=== PATIENT | female | born 1965 | race Caucasian/White ===

== ENCOUNTER 2018-03-19 15:59 | Emergency (ER) | payer OTHER ==
--- NOTE | 2018-03-19 16:19 | ED Physician Documentation ---
Upper Respiratory Symptoms - HISTORIAN Historian: patient - HPI Stated Complaint: cough Chief Complaint: Cough/ Upper Respiratory Additional Information: Patient presents to ED with a 5 day history of dry cough. She states she had an isolated fever 2 days ago of 102.0. Patient denies nasal congestion, chest pain, sinus pain. Onset: days ago (5) Duration: intermittent episodes Context: denies: recent foreign travel Severity: moderate Associated Symptoms: fever, productive cough. denies: runny nose, sinus pain, chest pain, hurts to breathe - ROS CONST/EYES: denies: weakness CVS/RESP: denies: chest pain, shortness of breath LYMPH: denies: leg swelling GI/: denies: vomiting, nausea NEURO/PSYCH: denies: dizziness MS/SKIN: denies: joint pain, muscle aches - PAST HX Lung Disease: COPD PE Risk Factors: none Surgeries/Procedures: none Allergies/Adverse Reactions: Allergies Allergy/AdvReac Type Severity Reaction Status Date / Time No Known Allergies Allergy Verified 03/19/18 16:27 Home Medications: Ambulatory Orders Medication Instructions Recorded Levofloxacin [Levaquin] 750 mg PO DAILY #10 tablet 03/19/18 - SOCIAL HX Smoking History: cigarettes Alcohol Use: none Drug Use: none - FAMILY HX Family History: none - VITAL SIGNS Vital Signs: Vital Signs Temp Pulse Resp BP Pulse Ox 99.2 F 85 32 H 127/95 95 03/19/18 16:08 03/19/18 16:08 03/19/18 16:08 03/19/18 16:08 03/19/18 16:08 - REVIEWED ASSESSMENTS Nursing Assessment Reviewed: Yes Vitals Reviewed: Yes ED Results Lab/Radiology - Lab Results Lab Results: PA and lateral chest History: Cough for 5 days. Smoker PA and lateral chest dated March 19, 2018 demonstrates multiple old bilateral rib fractures. Cardiomediastinal silhouette is normal. The lungs are hyperinflated consistent with COPD. Patchy right middle lobe infiltrate is present consistent with pneumonia. There is no pleural effusion. Impression: Patchy right middle lobe infiltrate consistent with pneumonia. Follow-up to resolution would be recommended in this high risk patient. COPD. Multiple old bilateral rib fractures. Electronically signed on Mar 19, 2018 5:02:39 PM SQUEEZER OPERATOR by: Mela Gan - Orders Orders: ED Orders Category Date Time Status CHEST 2VIEW [RAD] Stat Exams 03/19/18 Taken Lidocaine 1% 5ml(IM or SUTURE) [Xylocaine] Med 03/19/18 16:47 Discontinued 5 mg IJ NOW ONE cefTRIAXone SODIUM [Rocephin] Med 03/19/18 16:47 Discontinued 1,000 mg IM NOW ONE methylPREDNISolone SOD SUCC [Solu-MEDROL] Med 03/19/18 16:47 Discontinued 125 mg IM NOW ONE Upper Respiratory Symptoms - EXAM General Appearance: no acute distress, alert EENT: nml ENT inspection Neck: supple. No: lymphadenopathy Respiratory: no resp. distress, wheezes (right expiratory ) CVS: reg rate & rhythm, heart sounds normal Skin: warm,dry. No: rash Extremities: non-tender Neuro/Psych: oriented x3 Discharge Clincal Impression: Pneumonia Qualifiers: Pneumonia type: due to other aerobic Gram-negative bacteria Laterality: right Lung location: unspecified part of lung Qualified Code(s): J15.6 - Pneumonia due to other Gram-negative bacteria Prescriptions: Levofloxacin [Levaquin] 750 mg PO DAILY #10 tablet Additional Instructions: 1. Start Levaquin on 03/20/18 2. Mucinex twice daily 3. Tylenol and/or Ibuprofen as needed for pain/fever. 4. Follow up with PCP katie 1 week for repeat chest xray 5. Return to ER for new or worsening symptoms Condition: Stable Disposition: 01 HOME, SELF-CARE Decision to Admit: NO Date of Decison to Admit: 03/19/18 Decision Time: 17:22
[2018-03-19 16:25] VITALS: BP 127/95
[2018-03-19] MEDS ORDERED: LIDOCAINE HCL 1% PF 50MG/5ML AMP (IM/SUTURE/PAIN CLINIC) IJ ONE (16:47)
[2018-03-19] MEDS ORDERED: methylPREDNISolone SOD SUCC 125 MG/2 ML VIAL IM ONE (16:47)
--- NOTE | 2018-03-19 18:53 | Diagnostic Imaging Report ---
JACKIE COELHO [facility] [id number] [facility] [address] [place] [address]. [id number] Report Submission Date: Mar 19, 2018 5:02:39 PM EDUCATION DIRECTOR Patient Study Name: SOPHIE LESLIE Date: Mar 19, 2018 4:15:55 PM EDUCATION DIRECTOR Modality Type: DX Gender: F Description: CHEST : 61 Institution: [facility] Physician: JACKIE COELHO PA and lateral chest History: Cough for 5 days. Smoker PA and lateral chest dated March 19, 2018 demonstrates multiple old bilateral rib fractures. Cardiomediastinal silhouette is normal. The lungs are hyperinflated consistent with COPD. Patchy right middle lobe infiltrate is present consistent with pneumonia. There is no pleural effusion. Impression: Patchy right middle lobe infiltrate consistent with pneumonia. Follow-up to resolution would be recommended in this high risk patient. COPD. Multiple old bilateral rib fractures. Electronically signed on Mar 19, 2018 5:02:39 PM EDUCATION DIRECTOR by: Mela AWAN
== END 2018-03-19 17:45 | disposition home or self-care (01) ==
LOC: ED 15:59
DX: J15.6 Pneumonia due to other Gram-negative bacteria (principal)
CPT/HCPCS: 71046; 96372; 99283; 99284; J0696; J2930

== ENCOUNTER 2018-04-10 08:43 | Emergency (ER) | payer OTHER ==
[2018-04-10 09:06] VITALS: BP 114/83
--- NOTE | 2018-04-10 09:14 | ED Physician Documentation ---
General Adult - HISTORIAN Historian: patient, other (old records) - HPI Stated Complaint: Cough Chief Complaint: General Adult Additional Information: Diagnosed with pneumonia here on 03/19. Took 10 days of 750 mg Levaquin. Still co ughing, so comes to ER to see if she still has pneumonia. No fever or productive cough. Continues to smoke. - ROS CONST: denies: fever - PAST HX Past History: other (osteoporosis) Surgeries/Procedures: cholecystectomy Allergies/Adverse Reactions: Allergies Allergy/AdvReac Type Severity Reaction Status Date / Time No Known Allergies Allergy Verified 04/10/18 09:16 Home Medications: Ambulatory Orders Medication Instructions Recorded Celecoxib [Celebrex] 1T 04/10/18 Gabapentin 04/10/18 - SOCIAL HX Smoking History: cigarettes (15 years) - FAMILY HX Family History: No (no signif) - VITAL SIGNS Vital Signs: Vital Signs Temp Pulse Resp BP Pulse Ox 97.7 F 73 16 114/83 96 04/10/18 08:45 04/10/18 08:45 04/10/18 08:45 04/10/18 08:45 04/10/18 08:45 - REVIEWED ASSESSMENTS Nursing Assessment Reviewed: Yes Vitals Reviewed: Yes Progress - Progress Progress: Report Submission Date: Apr 10, 2018 9:56:24 AM ADVERTISING OPERATIONS MANAGER Patient Study Name: SOPHIE LESLIE Date: Apr 10, 2018 9:28:39 AM ADVERTISING OPERATIONS MANAGER MRN: [id number] Modality Type: DX Gender: F Description: CHEST 2 VIEW : [birth year] Institution: [facility] Physician: DOUG NATION - ER Chest two views History: Cough and recent pneumonia Findings: Multiple healed bilateral rib fractures, hyperinflation, normal heart size, and calcified granulomas are observed. There is no evidence of pneumonia or pleural effusion. Impression: Emphysema and healed rib fractures without pneumonia. Electronically signed on Apr 10, 2018 9:56:24 AM ADVERTISING OPERATIONS MANAGER by: Marcello Vann No cough heard while in ER. ED Results Lab/Radiology - Orders Orders: ED Orders Category Date Time Status CHEST 2VIEW [RAD] Stat Exams 04/10/18 Ordered General Adult Physical Exam - PHYSICAL EXAM GENERAL APPEARANCE: no distress EENT: eye inspection normal, ENT inspection normal, pharynx normal NECK: normal inspection, supple. No: lymphadenopathy RESPIRATORY: no resp distress, breath sounds normal CVS: reg rate & rhythm, heart sounds normal BACK: normal inspection SKIN: warm/dry, normal color EXTREMITIES: no evidence of injury NEURO: CN's nml as tested, motor nml, sensation nml Discharge Clincal Impression: Cough in adult Referrals: Primary Doctor,No [Primary Care Provider] - 2 Days Additional Instructions: Drink plenty of water. Avoid smoke. Condition: Good Disposition: 01 HOME, SELF-CARE Decision to Admit: NO Decision Time: 10:02
--- NOTE | 2018-04-10 10:29 | Diagnostic Imaging Report ---
DOUG NATION [facility] [address] [facility] [address] [address] Report Submission Date: Apr 10, 2018 9:56:24 AM LOG TRUCK DRIVER Patient Study Name: SOPHIE LESLIE Date: Apr 10, 2018 9:28:39 AM LOG TRUCK DRIVER MRN: [id number] Modality Type: DX Gender: F Description: CHEST 2 VIEW : [birth year] Institution: [facility] Physician: DOUG NATION Chest two views History: Cough and recent pneumonia Findings: Multiple healed bilateral rib fractures, hyperinflation, normal heart size, and calcified granulomas are observed. There is no evidence of pneumonia or pleural effusion. Impression: Emphysema and healed rib fractures without pneumonia. Electronically signed on Apr 10, 2018 9:56:24 AM LOG TRUCK DRIVER by: Marcello AWAN
== END 2018-04-10 10:07 | disposition home or self-care (01) ==
LOC: ED 08:43
DX: R05 Cough (principal); Z72.0 Tobacco use
CPT/HCPCS: 71046; 99282; 99283

== ENCOUNTER 2018-04-20 21:42 | Emergency (ER) | payer OTHER ==
--- NOTE | 2018-04-20 22:04 | ED Physician Documentation ---
Suicidal Attempt - HISTORIAN Historian: patient - HPI Stated Complaint: took whole bottle of Alieve and drank Chief Complaint: Overdose Onset: hours (2) Intent: suicide Severity: mild Situational Problems: Yes (She hates who she live with and her current situation ) Related To: significant other Further Comments: yes (she states she took a whole bottle of alieve and drank "high alcohol level beer" she states she hates her current life. Hates who she lives with and her pain has her miserable.) - Associated Symptoms Symptoms: frustrated Suicidal: suicidal thoughts Ingestion: wanted to "escape" Mechanism: overdose - ROS CONST: none - PAST HX Psychiatric problems: depression DVT/PE Risk Factors: other (chonic pain and arthritis ) Allergies/Adverse Reactions: Allergies Allergy/AdvReac Type Severity Reaction Status Date / Time No Known Allergies Allergy Verified 04/20/18 23:31 Home Medications: Ambulatory Orders Medication Instructions Recorded Celecoxib [Celebrex] 1T 04/10/18 Gabapentin 04/10/18 - Social HX Smoking History: non-smoker Marital Status: Drug Use: none - Family HX Family HX: other - VITAL SIGNS Vital Signs: Vital Signs Temp Pulse Resp BP Pulse Ox 72 14 101/66 94 04/21/18 00:51 04/21/18 00:51 04/21/18 00:51 04/21/18 00:51 - REVIEWED ASSESSMENTS Nursing Assessment Reviewed: Yes Vitals Reviewed: Yes Progress - Progress Progress: 2320: Sleeping in room quietly - awakens to name. Denies any pain DG 2340: Discussed case with poison control Shaina KING - states she will be fine for psych placement once her ETOH is acceptable DG 2345: Dr Stubbs is accepting pt for placement DG ED Results Lab/Radiology - Lab Results Lab Results: Lab Results 04/21/18 04/20/18 04/20/18 Unknown Unknown 22:00 WBC RBC Hgb Hct MCV MCH MCHC RDW Plt Count Neut % (Auto) Lymph % (Auto) [place] % (Auto) Eos % (Auto) Baso % (Auto) Neut # (Auto) Lymph # (Auto) [place] # (Auto) Eos # (Auto) Baso # (Auto) PT INR Sodium Potassium Chloride Carbon Dioxide BUN Creatinine Est GFR ( Amer) Est GFR (Non-Af Amer) Glucose Calcium Total Bilirubin AST ALT Alkaline Phosphatase Creatine Kinase Total Protein Albumin TSH 1.530 uIU/mL uIU/mL (0.270-4.200) Free T4 Index 1.37 ng/dL ng/dL (0.93-1.70) Free T3 Index 2.79 pg/mL pg/mL (2.00-4.40) Serum HCG, Qual Salicylates Opiates Screen Negative ng/mL ng/mL (<300) Oxycodone Screen Negative ng/mL ng/mL (<100) Methadone Screen Negative ng/mL ng/mL (<200) Acetaminophen Ur Barbiturates Screen Negative ng.mL ng.mL (<200) Tricyclic Antidepress Negative ng/mL ng/mL (<300) Phencyclidine Screen Negative ng/mL ng/mL (< 25) Amphetamines Screen Negative ng/mL ng/mL (<500) U Methamphetamines Scrn Negative ng/mL ng/mL (<500) MDMA Negative ng/mL ng/mL (<500) Benzodiazepines Screen Negative ng/mL ng/mL (<150) Urine Cocaine Screen Negative ng/mL ng/mL (<150) Cannabinoids Confirm >150 ng/mL H ng/mL (<15) U Cannabinoids Screen Non negative ng/mL H ng/mL (< 50) Ethyl Alcohol 04/20/18 04/20/18 04/20/18 22:00 22:00 22:00 WBC RBC Hgb Hct MCV MCH MCHC RDW Plt Count Neut % (Auto) Lymph % (Auto) [place] % (Auto) Eos % (Auto) Baso % (Auto) Neut # (Auto) Lymph # (Auto) [place] # (Auto) Eos # (Auto) Baso # (Auto) PT 10.3 Seconds Seconds (9.4-11.6) INR 0.98 (0.9-1.2) Sodium Potassium Chloride Carbon Dioxide BUN Creatinine Est GFR ( Amer) Est GFR (Non-Af Amer) Glucose Calcium Total Bilirubin AST ALT Alkaline Phosphatase Creatine Kinase Total Protein Albumin TSH Free T4 Index Free T3 Index Serum HCG, Qual Negative (NEGATIVE) Salicylates Test not performed Opiates Screen Oxycodone Screen Methadone Screen Acetaminophen Ur Barbiturates Screen Tricyclic Antidepress Phencyclidine Screen Amphetamines Screen U Methamphetamines Scrn MDMA Benzodiazepines Screen Urine Cocaine Screen Cannabinoids Confirm U Cannabinoids Screen Ethyl Alcohol 02/05/19 02/05/19 22:00 22:00 WBC 9.00 K/ul K/ul (4.00-12.00) RBC 4.49 M/ul M/ul (3.90-5.20) Hgb 13.5 g/dL g/dL (12.0-16.0) Hct 40.7 % % (34.5-46.5) MCV 90.0 fl fl (80.0-100.0) MCH 30.0 pg pg (28.0-34.0) MCHC 33.2 g/dL g/dL (30.0-36.0) RDW 14.0 % % (11.3-14.3) Plt Count 436 K/mm3 H K/mm3 (130-400) Neut % (Auto) 70.7 % % (39.0-79.0) Lymph % (Auto) 21.9 % % (16.0-50.0) [place] % (Auto) 5.7 % % (0.0-11.0) Eos % (Auto) 1.1 % % (0.0-6.8) Baso % (Auto) 0.6 (0.0-1.5) Neut # (Auto) 6.3 # k/uL # k/uL (1.4-7.7) Lymph # (Auto) 2.0 # k/uL # k/uL (0.6-4.0) [place] # (Auto) 0.5 # k/uL # k/uL (0.0-0.9) Eos # (Auto) 0.1 # k/uL # k/uL (0.0-0.6) Baso # (Auto) 0.1 # k/uL # k/uL (0.0-0.5) PT INR Sodium 143 mmol/L mmol/L (136-145) Potassium 3.5 mmol/L mmol/L (3.5-5.1) Chloride 108 mmol/L H mmol/L (98-107) Carbon Dioxide 25 mmol/L mmol/L (22-30) BUN 8 mg/dL mg/dL (7-17) Creatinine 0.64 mg/dL mg/dL (0.52-1.04) Est GFR ( Amer) > 60 (60 - ) Est GFR (Non-Af Amer) > 60 (60 - ) Glucose 99 mg/dL mg/dL (74-106) Calcium 9.1 mg/dL mg/dL (8.4-10.2) Total Bilirubin 0.3 mg/dL mg/dL (0.2-1.3) AST 44 U/L U/L (15-46) ALT 21 U/L U/L (13-69) Alkaline Phosphatase 109 U/L U/L (38-126) Creatine Kinase 190 U/L H U/L (30-135) Total Protein 7.8 g/dL g/dL (6.3-8.2) Albumin 4.6 g/dL g/dL (3.5-5.0) TSH Free T4 Index Free T3 Index Serum HCG, Qual Salicylates Opiates Screen Oxycodone Screen Methadone Screen Acetaminophen < 10.0 ug/mL L ug/mL (10-30) Ur Barbiturates Screen Tricyclic Antidepress Phencyclidine Screen Amphetamines Screen U Methamphetamines Scrn MDMA Benzodiazepines Screen Urine Cocaine Screen Cannabinoids Confirm U Cannabinoids Screen Ethyl Alcohol 325.8 mg/dL H mg/dL (0.0-10.0) - Orders Orders: ED Orders Category Date Time Status Assess pulse oximetry Q1H Care 04/20/18 22:05 Active ACETAMINOPHEN LEVEL Routine Lab 04/20/18 22:00 Completed ALCOHOL MEDICAL USE ONLY Routine Lab 04/20/18 22:00 Completed CBC/PLATELET/DIFF Routine Lab 04/20/18 22:00 Completed CMP Routine Lab 04/20/18 22:00 Completed CREATINE KINASE Routine Lab 04/20/18 22:00 Completed DRUG SCREEN URINE MEDICAL ONLY Routine Lab 04/20/18 Completed PTINR [PT-INR] Routine Lab 04/20/18 22:00 Completed SALICYLATE LEVEL Routine Lab 04/20/18 22:00 Completed SERUM HCG Routine Lab 04/20/18 22:00 Completed THYROID PANEL (TSH, FT3, FT4) Stat Lab 04/20/18 22:00 Completed 0.9 % Sodium Chloride [Normal Saline] 1,000 ml Med 04/20/18 22:20 Discontinued IV .STK-MED 0.9 % Sodium Chloride [Normal Saline] 1,000 ml Med 04/20/18 22:06 Discontinued IV NOW 0.9 % Sodium Chloride [Normal Saline] 1,000 ml Med 04/21/18 00:10 Discontinued IV NOW Folic Acid [Folvite] Med 04/20/18 22:20 Discontinued 5 mg .ROUTE .STK-MED ONE Multivit Infusn,Adult 1,Vit K [M.v.i. Adult] Med 04/20/18 22:21 Discontinued 10 ml IV .STK-MED ONE Thiamine HCl [Vitamin B-1] Med 04/20/18 22:20 Discontinued 200 mg .ROUTE .STK-MED ONE Thiamine HCl [Vitamin B-1] 100 mg Med 04/20/18 23:00 Discontinued Multivit Infusn,Adult 1,Vit K [M.v.i. Adult] 10 ml Folic Acid [Folvite] 5 mg 0.9 % Sodium Chloride [Normal Saline] 1,000 ml IV Q8 EKG WITH COMPARISON Routine Ther 04/20/18 Completed EKG WITH COMPARISON Stat Ther 04/20/18 Ordered Suicide Physical Exam - Physical Exam General Appearance: no acute distress, alert ENT: nml ENT inspection Eyes: PERRL Mental Status: mood/affect nml, slow responsiveness Suicide Attempts: other (says it wasnt an attempt although she wants to escape ) Orientation: nml x3 Cranial Nerves: CN's intact as tested Sensory, Motor: nml motor response, nml sensory response, nml reflexes, nml gait Respiratory: no resp distress, chest non-tender, breath sounds normal CVS: reg rate & rhythm, heart sounds normal, equal pulses, no murmur Abdomen: non-tender, nml bowel sounds, no distention Skin: warm/dry, normal color Extremities: non-tender, normal range of motion, no evidence of injury, no edema Discharge Clincal Impression: Suicidal behavior with attempted self-injury Elevated ETOH level Qualifiers: Blood alcohol level: 240 mg/100 ml or more Qualified Code(s): Y90.8 - Blood alcohol level of 240 mg/100 ml or more Referrals: Primary Doctor,No [Primary Care Provider] - 2 Days Condition: Serious Disposition: XFER SHT-TRM HOSP Decision to Admit: NO Date of Decison to Admit: 04/20/18 Decision Time: 23:45
[2018-04-20] MEDS ORDERED: 0.9 % SODIUM CHLORIDE 1,000 ML IV ONE ×2 (22:06→22:20)
[2018-04-20] MEDS ORDERED: THIAMINE HCL 200 MG/2 ML VIAL ONE (22:20)
[2018-04-20] MEDS ORDERED: FOLIC ACID 5 MG/1 ML ONE (22:20)
[2018-04-20] MEDS ORDERED: MULTIVIT INFUSN,ADULT 1,VIT K 10 ML VIAL IV ONE (22:21)
[2018-04-20 22:38] LABS: BASOPHILS % 0.6 (0.0-1.5); EOSINOPHILS % 1.1 % (0.0-6.8); MONOCYTES % 5.7 % (0.0-11.0); NEUTROPHILS # 6.3 # k/uL (1.4-7.7)
[2018-04-20 22:44] LABS: eGFR (Non-African) > 60
[2018-04-20] MEDS ORDERED: THIAMINE HCL 100 MG, MULTIVIT INFUSN,ADULT 1,VIT K 10 ML, FOLIC ACID 5 MG in 0.9 % SODI... IV SCH (23:00)
[2018-04-21] MEDS ORDERED: 0.9 % SODIUM CHLORIDE 1,000 ML IV ONE (00:10)
[2018-04-21 00:57] VITALS: BP 101/66
[2018-04-21 07:15] LABS: CANNABINOIDS NON NEGATIVE ng/mL (< 50); METHYLENEDIOXYMETHAMPHETAMINE NEGATIVE ng/mL (<500)
== END 2018-04-21 00:33 | disposition short-term general hospital (02) ==
LOC: ED 21:42
DX: T39.312A Poisoning by propionic acid derivatives, intentional self-harm, initial encounter (principal); Y92.9 Unspecified place or not applicable; Y90.8 Blood alcohol level of 240 mg/100 ml or more; Z79.899 Other long term (current) drug therapy
CPT/HCPCS: 36415; 80053; 80320; 80377; 82550; 84439; 84443; 84481; 84703; 85025; 85610; 96365; 99285; J3411; J3490; G0480; G0481; J7030